=== PATIENT | male | born 1945 | race Caucasian/White ===

== ENCOUNTER 2018-11-28 08:22 | Day surgery (SDC) | payer MEDICARE ==
[2018-11-25 15:49] VITALS: BMI 27.1
[~2018-11-28 08:22] MED LIST: LACTATED RINGERS 1,000 ML IV SCH; LIDOCAINE 1% 20 ML VIAL (10MG/ML) FOR IV START INTRADERMA PRN
[2018-11-28 08:36] VITALS: TEMP 97.7
[2018-11-28] MEDS ORDERED: LIDOCAINE 1% INJ 10MG/ML (20 ML MDV) ONE (09:16)
[2018-11-28] MEDS ORDERED: PROPOFOL 10 MG/ML 20 ML VIAL IV ONE (09:16)
--- NOTE | 2018-11-28 09:41 | P.PCN ---
Date of Procedure: 11/28/18 Procedure(s) Performed: BRIEF HISTORY: Patient is a 73-year-old pleasant, white male scheduled for an elective colonoscopy as a part of screening for colorectal neoplasia. PROCEDURE PERFORMED: Colonoscopy with snare polypectomy. PREOPERATIVE DIAGNOSIS: Screening for colon cancer. IV sedation per Anesthesia. PROCEDURE: After informed consent was obtained, the patient, was brought into the endoscopy unit. IV sedation was administered by Anesthesia under continuous monitoring. Digital rectal examination was normal. Initially the Olympus CF-160 flexible video colonoscope was then inserted in the rectum, gradually advanced into the cecum without any difficulty. Careful examination was performed as the scope was gradually being withdrawn. Ileocecal valve and the appendiceal orifice were visualized and appeared normal. Prep was excellent. Mucosa of the cecum, appeared normal. The ascending colon there was a 1.5 cm broad-based polyp that was removed by snare polypectomy. Rest of the ascending colon, transverse colon, descending colon, sigmoid colon, and rectum appeared normal. Moderate s igmoid diverticulosis seen. Retroflexion was performed in the rectum and no lesions were seen. The patient tolerated the procedure well. IMPRESSION: 1.5 cm broad-based ascending colon polyp status post snare polypectomy Moderate sigmoid diverticulosis RECOMMENDATIONS: Findings of this examination were discussed with the patient well as his family. He was advised to follow with the biopsy results. If the biopsy shows an adenoma, he can have a repeat colonoscopy in 3 years.
[2018-11-28] MEDS ORDERED: LACTATED RINGERS 1,000 ML IV ONE (09:43)
[2018-11-28 10:02] VITALS: BP 135/67; PULSE 78; RESP 18
== END 2018-11-28 10:24 | disposition home or self-care (01) ==
LOC: ORWHC2ENDO 08:22
PROVIDERS: ATTEND Internal Medicine Gastroenterology
DX: Z12.11 Encounter for screening for malignant neoplasm of colon (principal); D12.2 Benign neoplasm of ascending colon; K57.30 Diverticulosis of large intestine without perforation or abscess without bleeding; I10 Essential (primary) hypertension; F17.200 Nicotine dependence, unspecified, uncomplicated; K21.9 Gastro-esophageal reflux disease without esophagitis; Z88.0 Allergy status to penicillin; Z88.8 Allergy status to other drugs, medicaments and biological substances; Z79.51 Long term (current) use of inhaled steroids; Z79.899 Other long term (current) drug therapy
CPT/HCPCS: 88305; 45385; J2001; J2704

== ENCOUNTER 2023-02-25 09:36 | Day surgery (SDC) | payer MEDICARE ==
[2023-02-21 12:13] VITALS: BMI 26.6
[~2023-02-25 09:36] MED LIST changes: +LIDOCAINE 1% (10MG/ML) FOR IV START INTRADERMA PRN; -LIDOCAINE 1% 20 ML VIAL (10MG/ML) FOR IV START INTRADERMA PRN
[2023-02-25] MEDS ORDERED: LACTATED RINGERS 1,000 ML IV ONE (10:18)
[2023-02-25 10:57] VITALS: RESP 16; TEMP 98
[2023-02-25] MEDS ORDERED: PROPOFOL 10 MG/ML 20 ML VIAL IV ONE (11:42)
[2023-02-25] MEDS ORDERED: LIDOCAINE 2% (PF) 20 MG/ML 5 ML VIAL ONE (11:42)
--- NOTE | 2023-02-25 12:00 | P.PCN ---
Date of Procedure: 02/25/23 Procedure(s) Performed: BRIEF HISTORY: Patient is a 77-year-old pleasant white male scheduled for an elective colonoscopy as a part of evaluation of prior history of colon polyps. PROCEDURE PERFORMED: Colonoscopy with biopsy. PREOPERATIVE DIAGNOSIS: History of colon polyps. IV sedation per Anesthesia. PROCEDURE: After informed consent was obtained, the patient, was brought into the endoscopy unit. IV sedation was administered by Anesthesia under continuous monitoring. Digital rectal examination was normal. Initially the Olympus CF-160 flexible video colonoscope was then inserted in the rectum, gradually advanced into the cecum without any difficulty. Careful examination was performed as the scope was gradually being withdrawn. Ileocecal valve and the appendiceal orifice were visualized and appeared normal. Prep was excellent. Mucosa of the cecum, ascending colon, appeared normal. In the transverse colon there was a 3-4 mm sessile polyp removed by cold biopsy. transverse colon, descending colon, sigmoid colon, and rectum appeared normal. Scattered left-sided diverticulosis. Retroflexion was performed in the rectum and no lesions were seen. The patient tolerated the procedure well. IMPRESSION: 3-4 mm transverse colon polyp status post cold biopsy Scattered left sided diverticula Rest of the colon appeared normal RECOMMENDATIONS: Findings of this examination were discussed with the patient as well his family. He was advised to follow with the biopsy results and if the biopsy is adenoma he can have a repeat colonoscopy in 5 years..
[2023-02-25 12:16] VITALS: BP 121/69; PULSE 74
== END 2023-02-25 12:38 | disposition home or self-care (01) ==
LOC: ORWHC2ENDO 09:36
PROVIDERS: ATTEND Internal Medicine Gastroenterology
DX: Z12.11 Encounter for screening for malignant neoplasm of colon (principal); K63.5 Polyp of colon; I10 Essential (primary) hypertension; F41.9 Anxiety disorder, unspecified; F32.A Depression, unspecified; K21.9 Gastro-esophageal reflux disease without esophagitis; Z79.83 Long term (current) use of bisphosphonates; F17.200 Nicotine dependence, unspecified, uncomplicated; Z88.0 Allergy status to penicillin; Z88.8 Allergy status to other drugs, medicaments and biological substances; Z86.010 Personal history of colon polyps; Z79.899 Other long term (current) drug therapy
CPT/HCPCS: 88305; 88313; 45380; J2704; J2001